=== PATIENT | female | born 1950 | race African-American/Black ===

== ENCOUNTER 2017-08-16 08:09 | Emergency (ER) | payer OTHER ==
[~2017-08-16] VITALS: Ht 157.5 cm; Wt 90.7 kg
[~2017-08-16 08:09] MED LIST: CIPRO500 MG PO; FLAGYL500MG PO; INTESTINEX1 CA1 PO; INTESTINEX1 CAP PO; LOSARTAN POTASS50 MG PO; NIFEDIPINE20 MG PO; PREDNISONE10 MG; PROTONIX40 MG PO; ULTRACET PO
[2017-08-16] MEDS ORDERED: METFORMIN HCL500 M2 (08:21)
[2017-08-16] MEDS ORDERED: NEURONTIN800 MG (08:21)
[2017-08-16] MEDS ORDERED: ATORVASTATIN CA40 MG (08:22)
[2017-08-16] MEDS ORDERED: HYDROCHLORIC AC25 ML (08:22)
[2017-08-16] MEDS ORDERED: FOLIC ACID1 MG (08:22)
[2017-08-16] MEDS ORDERED: DULOXETINE HCL30 MG (08:22)
[2017-08-16] MEDS ORDERED: METHOTREXATE2.5 MG (08:23)
[2017-08-16] MEDS ORDERED: PREDNISONE5 M1 (08:23)
[2017-08-16] MEDS ORDERED: CARBIDOPA-LEVO1 EA12 (08:24)
[2017-08-16] MEDS ORDERED: LISINOPRIL40 MG (08:24)
[2017-08-16] MEDS ORDERED: PROTONIX40 MG (08:24)
[2017-08-16] MEDS ORDERED: METOPROLOL SUC200 MG (08:25)
[2017-08-16] MEDS ORDERED: TRAMADOL HCL50 MG (08:25)
[2017-08-16] MEDS ORDERED: MEDROLPACK PO (13:14)
[2017-08-16] MEDS ORDERED: ZYRTEC10 M3 PO (13:14)
== END 2017-08-16 13:48 | disposition home or self-care (01) ==
LOC: ER 08:09
DX: R60.0 Localized edema (principal); T78.1XXA Other adverse food reactions, not elsewhere classified, initial encounter; X58.XXXA Exposure to other specified factors, initial encounter

== ENCOUNTER 2018-02-05 19:18 | Emergency (ER) | payer OTHER ==
[~2018-02-05] VITALS: Ht 162.6 cm; Wt 99.8 kg
[~2018-02-05 19:18] MED LIST changes: +ATORVASTATIN CA40 MG; +CARBIDOPA-LEVO1 EA12; +DULOXETINE HCL30 MG; +FOLIC ACID1 MG; +HYDROCHLORIC AC25 ML; +LISINOPRIL40 MG; +MEDROLPACK PO; +METFORMIN HCL500 M2; +METHOTREXATE2.5 MG; +METOPROLOL SUC200 MG; +NEURONTIN800 MG; +PREDNISONE5 M1; +PROTONIX40 MG; +TRAMADOL HCL50 MG; +ZYRTEC10 M3 PO
== END 2018-02-05 20:55 | disposition home or self-care (01) ==
LOC: ER 19:18
DX: S00.83XA Contusion of other part of head, initial encounter (principal); S13.8XXA Sprain of joints and ligaments of other parts of neck, initial encounter; W18.39XA Other fall on same level, initial encounter; Y93.89 Activity, other specified; Y92.018 Other place in single-family (private) house as the place of occurrence of the external cause; Y99.8 Other external cause status